=== PATIENT | male | born 1945 | race Caucasian/White ===

== ENCOUNTER 2021-12-27 07:57 | Outpatient (CLI) | payer MEDICARE, SELFPAY ==
--- NOTE | ~2021-12-27 | NM_ITS ---
EXAMINATION: NM bone scan whole body DATE: 12/27/2021 10:49 INDICATION: Prostate cancer TECHNIQUE: 22.9 mCi Tc-99m HDP was administered intravenously. Delayed whole-body scintigrams were o btained. COMPARISON: CT abdomen and pelvis dated 12/27/2021 FINDINGS: Likely degenerative joint centered uptake at the medial compartments of the bilateral knees, at the r ight acromioclavicular joint and at the bilateral hands and wrists and feet. Foci of increased uptake at the left calcaneus likely related to plantar enthesopathy. No other suspicious foci of abnormal b one uptake to suggest metastatic disease. IMPRESSION: 1. No evident metastatic disease. Reviewed, dictated and finalized at location [facility]. [employer] FOREM[employer]
--- NOTE | ~2021-12-27 | CT_ITS ---
EXAMINATION: CT abdomen pelvis w con DATE: 12/27/2021 08:46 INDICATION: Malignant neoplasm of prostate gland TECHNIQUE: Computed tomography (CT) of the abdomen and pelvis was performed with 100 cc Omnipaque 350 intravenous contrast. Automated exposure control and iterative reconstruction technique were employe d. Exam dose: 1228.66 mGy-cm total exam DLP. COMPARISON: None. FINDINGS: The lung bases are clear of infiltrate or consolidation. Normal heart size. No pericardial effusion or pleural effusion. No hepatic, splenic, pancreatic, adrenal or renal space-occupying mass lesion is evident. Probable 5 mm cyst of left kidney and several left renal cysts measuring up to 8 mm. 5 mm nonobstructing lower pole right renal calculus. No ureteral calculus or hydroureteronephrosis is noted on either side. There is normal caliber of the abdominal aorta. No intraperitoneal or retroperitoneal or pelvic mass lesion or adenopathy or ascites is evident. There is moderate prostatomegaly. The urinary bladder is unremarkable. Small fat-containing left inguinal hernia. Normal appendix. There is minimal left diverticulosis; no CT evidence of diverticulitis. No bowel obs truction, bowel wall thickening, pneumatosis or intraperitoneal free air is detected. There are bilateral L5 pars interarticularis defects with grade 2 anterolisthesis at L5-S1. There is severe degenerative disc disease at L5-S1 and moderate degenerative disc disease of the [place] of the lumbar spine. Diffuse idiopathic skeletal hyperostosis of the lower thoracic spine. No suspicious osteolytic or osteoblastic lesions are identified. IMPRESSION: Moderate prostatomegaly No abdominal or pelvic lymphadenopathy or mass lesion is noted; no osteosclerotic metastases are note d 5 mm nonobstructing lower pole right renal calculus A few 6 mm or smaller renal cysts are noted Minimal diverticulosis of the left colon Bilateral L5 pars interarticularis defects with grade 2 anterolisthesis at L5-S1 Degenerative changes of the thoracic and lumbar spine Reviewed, dictated and finalized at [facility]. Reviewed, dictated and finalized at location [facility]. OPERATOR INSULATOR IMPRESSION: Moderate prostatomegaly No abdominal or pelvic lymphadenopathy or mass lesion is noted; no osteosclerot ic metastases are noted 5 mm nonobstructing lower pole right renal calculus A few 6 mm or smaller renal cysts are noted Minimal diverticulosis of the left colon Bilateral L5 pars interarticularis defects with grade 2 anterolisthesis at L5-S 1 Degenerative changes of the thoracic and lumbar spine
[2021-12-27 08:34] LABS: Estimated Glomerular Filt Rate > 60
== END 2021-12-27 07:58 | disposition home or self-care (01) ==
LOC: ANHIMG 08:04
PROVIDERS: Visit Provider Urology
DX: C61 Malignant neoplasm of prostate (principal); M47.817 Spondylosis without myelopathy or radiculopathy, lumbosacral region
CPT/HCPCS: 74177; 78306; A9561; Q9967